=== PATIENT | male | born 1930 | race Caucasian/White ===

== ENCOUNTER 2017-11-23 14:58 | Inpatient (IN) | payer MEDICARE ==
[~2017-11-23] VITALS: Ht 175.2 cm; Wt 104.3 kg
--- NOTE | ~2017-11-23 | PR ---
[place], [place] PROGRESS NOTE NAME: ANGELASHANIQUA UNIT #: [id number] ROOM: 315 DOCTOR: SHANIQUA MANCIA MD BIRTHDATE: [birth year] DOS: 11/28/2017 CHIEF COMPLAINT: "Yeah, it is frustrating not being able to eat." SUMMARY OF THE VISIT: The patient was interviewed in the dining area where he was sitting waiting for his breakfast. He reports that he had not yet been served. He is frustrated that his diet has been changed because of some swallowing issues. We discussed at length his options as far as returning back to a long-term care facility versus returning home. He is still hopeful that he can return home. A discussion, however, with the treatment team indicates that his family is very much wanting him to return to a long-term care facility to build up his strength, so that if and when he does return home, it will be a successful transition. The patient does seem to be improving. His mood does seem to be more bright and pleasant. He has not verbalized any paranoia or delusions. MENTAL STATUS: He is alert and oriented to person, place and time. Mood does seem to be euthymic. Affect appropriate. There is no tor, hypomania or psychosis. Memory has mild gaps, but overall is pretty intact. PLAN: I will maintain his current psychotropic regimen. I will check a Neurontin level in the morning to ensure that it is therapeutic. If there is room to adjust, I will do so given the fact that one of his major issues now is chronic pain. We will engage in individual and man milieu activity, returning to the least restrictive environment when psychiatrically stable. SHANIQUA MANCIA MD CM:PNTRANS 0911 [id number] SHANIQUA MANCIA MD 11/28/17 1005 interface
--- NOTE | ~2017-11-23 | DS ---
[place], [place] DISCHARGE SUMMARY NAME: ANGELASHANIQUA UNIT #: [id number] ROOM: 315 DOCTOR: SHANIQUA MANCIA MD BIRTHDATE: [birth year] DOS: 12/02/2017 ADDENDUM CHIEF COMPLAINT: "I am ready to go doc, thank you so much." SUMMARY OF HOSPITAL COURSE: The patient was interviewed as he was sitting down to eat breakfast. He engaged readily in conversation, reporting that he feels well. He is very happy to be going to one of the [facility] because his daughter works there. He continues to express displeasure with his stay at [facility]. He reports that he is sleeping well, eating well. He still does complain of considerable pain, which has been an ongoing issue for him and needs to be addressed ongoingly as an outpatient. He, however, convincingly denies suicidal thoughts, homicidal thoughts or any self-injurious thoughts and denies any auditory or visual hallucinations or any type of symptomatology. He is tolerating the current medication regimen well. MENTAL STATUS AT DISCHARGE: He is alert and oriented. Mood does seem to be euthymic. Affect appropriate. There are no suicidal or homicidal or self-injurious thoughts. There is no tor, psychosis or any type of symptomatology. Memory does have some gaps, but overall he is intact. DIAGNOSES: Major depression, recurrent. DISPOSITION: To go to one of the [facility] in [place] where I will follow him upon his return. His scripts have been printed and sent with him. SHANIQUA MANCIA MD CM:DISCHARG 0938 SHANIQUA MANCIA MD 12/02/17 1927 interface
--- NOTE | ~2017-11-23 | PR ---
[place], [place] PROGRESS NOTE [id number] UNIT #: [id number] ROOM: 315 DOCTOR: JAE VILLEGAS MD BIRTHDATE: [birth year] DOS: 11/29/2017 SUBJECTIVE: The patient seen and spoke with the staff. Per staff, the patient is doing better today, only had one emesis. Eating well. Medication compliant. No behavioral problems or issues. The patient was on his bed. He reports doing well. He said that he is happy that he is not throwing up anymore. He denied any side effect from the medication. He reports good sleep. MENTAL STATUS EXAMINATION: The patient was pleasant and cooperative. He was alert, oriented to month and year. He described his mood as "good." Affect, mood congruent. Thought process goal directed with some confabulation. He denied auditory or visual hallucination. No delusion or paranoia noted. He denied suicidal ideation, intent or plan. He also denied homicidal ideation, intent or plan. ASSESSMENT: Brief psychotic disorder. PLAN: 1. Continue current medication and care. 2. Increase activity and groups 3. Encourage psychoeducation and coping skills. JAE VILLEGAS MD CM:PNTRANS [id number] JAE VILLEGAS MD 11/30/17 0042 interface
--- NOTE | ~2017-11-23 | PR ---
[place], [place] PROGRESS NOTE NAME: SHANIQUA MILLER [facility] #: [id number] UNIT #: [id number] ROOM: 315 DOCTOR: JAE VILLEGAS MD BIRTHDATE: [birth year] DOS: 11/30/2017 SUBJECTIVE: The patient seen and I spoke with the staff. Per staff, the patient is doing well. No visual problems or issues. Medication compliant. Good sleep and appetite. The patient was in his bed. He was able to recall me. He reports doing good. Denied depressed mood or hopelessness. Denied any other neurological signs and symptoms of depression. He reported good sleep and appetite. He said that he had some headache this morning and will be asking for the p.r.n. medication from the nursing staff. MENTAL STATUS EXAMINATION: The patient was pleasant, cooperative. Described his mood as "good." Affect, mood congruent. Thought process goal directed. No flight of ideas, loosening of association. He denied auditory or visual hallucination. No delusion or paranoia noted. He denied suicidal ideation, intent or plan. He also denied homicidal ideation, intent or plan. ASSESSMENT: Brief psychotic disorder. PLAN: 1. Continue current medication and care. 2. Continue redirection. 3. Encourage activities and groups. 4. Final medication management and discharge planning by the regular team. JAE VILLEGAS MD CM:PNTRANS 38 JAE VILLEGAS MD 11/30/172236 interface
--- NOTE | ~2017-11-23 | PR ---
[place], [place] PROGRESS NOTE NAME: ANGELASHANIQUA UNIT #: [id number] ROOM: 315 DOCTOR: SHANIQUA MANCIA MD BIRTHDATE: [birth year] DOS: 11/27/2017 CHIEF COMPLAINT: "I am doing okay, Thanks for asking." SUMMARY OF THE VISIT: The patient was interviewed in the dining area where he was sitting eating breakfast. He stopped and engaged in conversation readily. I discussed with him the possibility of returning back to a long-term care facility versus home. We discussed the possibility that he might have to go into a long-term care facility because of his multiple physical ailments. He did request that we consider finding him another facility other than [facility]. His preference continues to be returning home with in-home services. He was bright and pleasant. He reported a good sleep and he was eating well. There is no paranoia. There was no agitation. There was no mood lability. He seems to be tolerating the current medication regimen well. MENTAL STATUS: He is alert and oriented. Mood does seem to be trending strongly towards euthymia. Affect is much more appropriate. There was no tor, hypomania or psychosis. Memory for the most part is intact. PLAN: I will maintain his current psychotropic regimen. We will have manager social media explore possible placement options including the possibility of returning home. We will discharge then when psychiatrically stable. SHANIQUA MANCIA MD CM:PNTRANS [id number] SHANIQUA MANCIA MD 11/27/17 0932 interface
--- NOTE | ~2017-11-23 | PR ---
[place], [place] PROGRESS NOTE NAME: ANEGLASHANIQUA UNIT #: [id number] ROOM: 315 DOCTOR: SHANIQUA MANCIA MD BIRTHDATE: [birth year] DOS: 11/26/2017 CHIEF COMPLAINT: "I really don't want to go back to [place], can I go home?" SUMMARY OF THE VISIT: The patient was interviewed in the dining area. He was sitting there talking to peers with his oxygen on. He stopped and welcomed me and engaged readily in conversation. He does seem to be brighter and more pleasant and reports that he is sleeping much better and is eating better. He did voice a wish to be able to return home and that he does not want to go back to [facility]. I did discuss with him that this is really up to the hospitalist and his medical doctors because of the severity of his medical conditions and being oxygen dependent. I will have the hospitalist notified to see if this is something that is a reasonable thing to work towards and be able to put visiting nurses in place or if his needs are such that he must go to a long-term care facility. MENTAL STATUS: He is alert and oriented. Mood does seem to be trending towards euthymia. Affect is more appropriate. There are no symptoms of tor or hypomania. There are no overt auditory or visual hallucinations. Memory for the most part is intact. PLAN: I will discontinue his Risperdal completely now as he does not seem to have psychosis. There does seem to be just the presence of the depression, which is lessening. I will give him Benadryl 25 mg IM now as the nurses report he has complained somewhat of some swallowing issues. Between discontinuing the Risperdal and giving him the Benadryl to counteract, we should see a relief in this. We will continue to engage in individual and man milieu activity with the plan to return to the least restrictive environment when psychiatrically stable. SHANIQUA MANCIA MD CM:PNTRANS [id number] SHANIQUA MANCIA MD 11/26/17 1315 interface
--- NOTE | ~2017-11-23 | WRIGHTHP ---
[place], [place] PATIENT HISTORY AND PHYSICAL EXAM NAME: SHANIQUA MILLER UNIT #: [id number] ROOM: 312 DOCTOR: BLANCHE ARGUETASHANIQUA BIRTHDATE: [birth year] DOS: 11/24/2017 CHIEF COMPLAINT: "I am here because I was afraid to go to bed. I am scared at that place." HISTORY OF PRESENT ILLNESS: This is an 87-year-old white male who is a resident of the [facility]. The patient apparently has become increasingly depressed, despondent and paranoid. The patient is afraid to go to bed. Per his report, he is afraid that something will happen to him overnight. He has also, however, been making statements that he will hang himself and he will be before the Super Bowl. He is fearful that people are poisoning him and placing toxins in either his food or his medication. He has been fearful to take these. He has not been cooperating with ADLs and has been very resistive to care. He is admitted now to rule out organic factors, to stabilize on medication, returning to the least restrictive environment when psychiatrically stable. PAST MEDICAL HISTORY: Remarkable for hypertension, chronic pain, coronary artery disease. MENTAL STATUS: The patient is alert and oriented to person, place and very approximate to time. Mood does seem to be rather down and depressed. Affect is flat, blunted with a constricted range. He endorses some paranoia and states that he is fearful for his life. There are no auditory or visual hallucinations. No delusions other than the paranoia. Short-term memory has mild gaps, otherwise he is intact. DIAGNOSIS: Major depression, recurrent with psychotic features. PLAN: I have maintained him on Risperdal, but adjusted the dose upward to 0.5 b.i.d. I have added Remeron 15 mg at bedtime as an antidepressant. His vitamin D level is very low normal as is his vitamin B12. I will start vitamin B12 injection of 1000 mcg IM today and vitamin D 50,000 international units every Friday engage in individual and man milieu activity, returning to the least restrictive environment when psychiatrically stable. [place], [place] PATIENT HISTORY AND PHYSICAL EXAM NAME: SHANIQUA MILLER UNIT #: [id number] ROOM: [facility] DOCTOR: SHANIQUA MANCIA MD BIRTHDATE: [birth year] SHANIQUA MANCIA MD CM:HISPHYS:PATIENT HISTORY AND PHYSICAL EXAMINATION 3 9 SHANIQUA MANCIA MD 11/24/17 0929 interface
--- NOTE | ~2017-11-23 | DS ---
[place], [place] DISCHARGE SUMMARY [id number] UNIT #: [id number] ROOM: 315 DOCTOR: SHANIQUA MANCIA MD BIRTHDATE: [birth year] DOS: 12/01/2017 CHIEF COMPLAINT: "I am here because I was afraid to go to bed. I am scared at that place that something will happen." HISTORY OF PRESENT ILLNESS: This is an 87-year-old white male who is a resident of the [facility]. The patient has become increasingly depressed and despondent and paranoid. He states that he has been afraid to go to bed. Per his report, he is afraid that something will happen to him overnight. He also has been making statements that he was going to hang himself and that he would be before Super Bowl. He is fearful that people are poisoning him and placing toxins in either his food or his medication. He has not been compliant with meds because of this, he has not been cooperating with ADLs and has been resistive to all aspects of his care. He is admitted now to rule out organic factors and to stabilize on medication, returning to the least restrictive environment when psychiatrically stable. PAST MEDICAL HISTORY: Remarkable for hypertension, chronic pain, coronary artery disease and a plethora of surgeries. SUMMARY OF HOSPITAL COURSE: The patient was admitted to the unit where he was started on Risperdal and the dose initially was increased to 0.5 mg twice a day, Remeron 15 mg at bedtime was added as an antidepressant. Additionally, screening exam showed him to have a low vitamin D and a low vitamin B12 level and he was given appropriate treatment for these. After all well it became very evident that he truly was not paranoid, but that some of his fears were based in fact that he did not like the intermediate and he did not like people wandering into his bedroom. Because of this, he was fearful that these confused people would actually hurt him. The Risperdal was gradually tapered and discontinued without any ill effect. He maintained on the Remeron 15 mg at bedtime and did improve, sleep and appetite normalized. He was much more conversant and pleasant. He did verbalize a wish that he had to go to a intermediate that he would not return back to [facility] and we did assist him in finding an alternative placement. He had improved sufficiently to return to that placement. MENTAL STATUS AT DISCHARGE: The patient is alert and oriented. Mood was generally euthymic. Affect appropriate. No tor or hypomania. No gross psychosis. There are no suicidal thoughts, homicidal thoughts or any self-injurious thoughts. Memory had mild gaps, but for the most part, he was intact. FINAL DIAGNOSES: Major depression, recurrent. PLAN: His prescription for Remeron was printed and will be sent with him. He will be discharged to the least restrictive environment. ADDENDUM ADDENDUM [place], [place] DISCHARGE SUMMARY NAME: SHANIQUA MILLER UNIT #: [id number] ROOM: 315 DOCTOR: SHANIQUA MANCIA MD BIRTHDATE: [birth year] CHIEF COMPLAINT: "I am ready to go doc, thank you so much." SUMMARY OF HOSPITAL COURSE: The patient was interviewed as he was sitting down to eat breakfast. He engaged readily in conversation, reporting that he feels well. He is very happy to be going to one of the [facility] because his daughter works there. He continues to express displeasure with his stay at [facility]. He reports that he is sleeping well, eating well. He still does complain of considerable pain, which has been an ongoing issue for him and needs to be addressed ongoingly as an outpatient. He, however, convincingly denies suicidal thoughts, homicidal thoughts or any self-injurious thoughts and denies any auditory or visual hallucinations or any type of symptomatology. He is tolerating the current medication regimen well. MENTAL STATUS AT DISCHARGE: He is alert and oriented. Mood does seem to be euthymic. Affect appropriate. There are no suicidal or homicidal or self-injurious thoughts. There is no tor, psychosis or any type of symptomatology. Memory does have some gaps, but overall he is intact. DIAGNOSES: Major depression, recurrent. DISPOSITION: To go to one of the [facility] in [place] where I will follow him upon his return. His scripts have been printed and sent with him. SHANIQUA MANCIA MD CM:DISCHARG [id number] SHANIQUA MANCIA MD 12/04/17 1011 interface
--- NOTE | ~2017-11-23 | PROC NOTE ---
[place], [place] PROCEDURE NOTE NAME: SHANIQUA MILLER [facility] #: [id number] UNIT #: [id number] ROOM: 315 DOCTOR: MARIAN MURRAY BIRTHDATE: [birth year] DOS: 11/27/2017 MODIFIED BARIUM SWALLOW. LOCATION: [address] [place] [address], room 315, bed 1. ORDERING PHYSICIAN: Dr. Mancia. RADIOLOGIST: Dr. Do. BACKGROUND INFORMATION: The patient, an 87-year-old male was seen for a modified barium swallow. This test was ordered to determine most appropriate diet and view the anatomy and physiology of the swallowing mechanism. This patient was admitted to the [facility] with diagnoses of brief psychotic disorder, depression, DM, hypertension, multiple falls and GERD. Reports indicate an extended swallow time, coughing with meals, reporting a feeling that food is sticking and coughing up food after meals. The patient was seen for a bedside swallowing evaluation this morning. At that time, he was completing his meal and was observed to have emesis following the meal. He currently receives a full liquid diet. For today's assessment, the patient was alert, cooperative and able to follow all commands. Oral peripheral examination revealed presence of upper and lower dentures, which patient reported were adequately fitting. Lingual, labial, and buccal skills were within normal limits in terms of strength, range of motion, and coordination. The patient was able to volitionally cough and swallow. He was wearing oxygen by nasal cannula during the assessment. METHODS AND MATERIALS USED FOR THE EXAM: The patient was positioned in the lateral plane and the examination was viewed under fluoroscopy. The patient was presented with a variety of consistencies to assess swallowing skills including applesauce mixed with barium presented in half teaspoon amounts, barium-coated cookie and sandwich given in bite size pieces and thin and nectar thick barium taken by cup in single sip size amounts. ORAL PHASE: The patient achieved adequate labial seal around cup and spoon with no anterior loss. Bolus formation was adequate with all consistencies. Mastication was within functional limits. Oral transit time of puree and solids was mildly increased. Tongue to palate contact was within normal limits. Tongue to posterior pharyngeal wall contact was within normal limits. Velar functioning was within normal limits with no nasal regurgitation. PHARYNGEAL PHASE: The pharyngeal swallow occurred within a timely manner. The patient exhibited reduced laryngeal elevation and epiglottic function when swallowing thin liquid barium with aspiration occurring during the swallow. Weak coughing was elicited at this time. No penetration or aspiration occurred with any other consistency. There was no pooling in the pharynx post-swallow with any consistency. ESOPHAGEAL PHASE: This phase of the swallow was not formally assessed during this exam. [place], [place] PROCEDURE NOTE NAME: SHANIQUA MILLER UNIT #: [id number] ROOM: 315 DOCTOR: MARIAN MURRAY BIRTHDATE: [birth year] IMPRESSIONS AND RECOMMENDATIONS: Based upon assessment results, this 87-year-old patient presents with a mild oropharyngeal dysphagia characterized by slow oral transit and aspiration during the swallow with thin liquids. Recommend a regular diet and nectar thick liquids. Recommend use of universal safe swallow precautions such as upright positioning with meals, small bites and sips and slow consumption. Follow up therapy is recommended focusing on pharyngeal exercises, education and use of safe swallow precautions. The patient would benefit from a followup modified barium swallow study in 3-4 weeks to assess progress and need to continue with thick liquids. Results and recommendations were shared with the patient and his nurse and they verbalized understanding. Thank you very much for this referral. Should you have any questions regarding this patient, please contact the speech pathologist at [phone]. MARIAN MURRAY SHANIQUA MANCIA MD CM:PROCNOTE:PROCEDURE NOTE [id number] MARIAN MURRAY
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
[2017-11-23] MEDS ORDERED: ALDACTONE25 M1 PO (15:40)
[2017-11-23] MEDS ORDERED: LIPITOR10 MG PO (15:42)
[2017-11-23] MEDS ORDERED: ASPIRIN ADULT L81 M2 PO (15:42)
[2017-11-23] MEDS ORDERED: SEPTDS PO (15:44)
[2017-11-23] MEDS ORDERED: COLCHICINE0.6 M2 PO (15:53)
[2017-11-23] MEDS ORDERED: HEARTBURN RELIE20 MG PO (15:55)
[2017-11-23] MEDS ORDERED: Duragesic 75 M75 MCG TD (16:01)
[2017-11-23] MEDS ORDERED: GABAPENTIN TAB600 MG PO ×2 (16:03→16:04)
[2017-11-23] MEDS ORDERED: POTASSIUM CHLO20 ME3 PO (16:07)
[2017-11-23] MEDS ORDERED: LASIX40 MG PO (16:08)
[2017-11-23] MEDS ORDERED: MELATONIN5 M1 PO ×2 (16:10→16:52)
[2017-11-23] MEDS ORDERED: NORVASC5 MG PO (16:11)
[2017-11-23] MEDS ORDERED: PROSIGHT TABLE1 EACH PO (16:13)
[2017-11-23] MEDS ORDERED: ROPINIROLE HYDRO1 MG PO (16:14)
[2017-11-23] MEDS ORDERED: ZOLOFT50 MG PO (16:15)
[2017-11-23] MEDS ORDERED: TERAZOSIN HCL5 M1 PO (16:16)
[2017-11-23] MEDS ORDERED: CLONIDINE HCL0.2 MG PO (16:17)
[2017-11-23] MEDS ORDERED: METOPROLOL TART75 MG PO (16:20)
[2017-11-23] MEDS ORDERED: RISPERDAL0.25 MG PO (16:23)
[2017-11-23] MEDS ORDERED: DULCOLAX10 M1 R (16:25)
[2017-11-23] MEDS ORDERED: FLEET ENEMA 13133 ML R (16:32)
[2017-11-23] MEDS ORDERED: MILK OF MA400 MG/51 PO (16:54)
[2017-11-23] MEDS ORDERED: OXYCODONE-ACET500 ML PO (16:56)
[2017-11-23] MEDS ORDERED: TRAZODONE50 MG PO (17:02)
[2017-11-23] MEDS ORDERED: SALINE NASAL M126 ML NAS (17:02)
[2017-11-23] MEDS ORDERED: APAP325 MG PO (17:04)
[2017-11-23] MEDS ORDERED: TYLENOL325 M1 PO (17:05)
[2017-11-23] MEDS ORDERED: VOLTAREN100 GM T (17:06)
[2017-11-23] MEDS ORDERED: KENALOG 0.1%80 GM T (17:08)
[2017-11-23 18:42] VITALS: BP 190/98
[2017-11-23 20:00] VITALS: BP 196/102
[2017-11-24 00:04] LABS: BASO % 0.4 % (0.0-1.0); EOS # 0.3 10*3/uL (0.0-0.4); EOS % 4.6 % (1.0-4.0); HEMATOCRIT 38.2 % (42.0-52.0); HEMOGLOBIN 12.4 g/dl (14.0-18.0); LYMPH # 1.3 10*3/uL (1.3-4.4); LYMPH % 18.3 % (27.0-41.0); MEAN CELL VOLUME 97.9 fl (80.0-94.0); MEAN CORPUSCULAR HGB 31.8 pg (27.0-31.0); MEAN CORPUSCULAR HGB CONC 32.5 g/dl (33.0-37.0); MEAN PLATELET VOLUME 10.3 fl (9.6-12.3); MONO # 0.7 10*3/uL (0.1-1.0); MONO % 9.1 % (3.0-9.0); NEUT # 4.8 10*3/uL (2.3-7.9); NEUT % 66.6 % (47.0-73.0); PLATELET COUNT AUTOMATED 103 10*3/uL (130-400); RED CELL DISTRI WIDTH 14.4 % (0-14.5); WHITE BLOOD COUNT 7.2 10*3/uL (4.8-10.8)
[2017-11-24 00:16] LABS: ALBUMIN 3.6 gm/dl (3.1-4.5); CREATININE 1.97 mg/dL (0.70-1.30); POTASSIUM 3.8 mmol/L (3.5-5.1); TOTAL PROTEIN 7.7 gm/dL (6.4-8.2)
[2017-11-24 00:25] LABS: THYROID STIM HORMONE (HS) 1.61 uIU/ml (0.358-4.75)
[2017-11-24 01:11] LABS: VITAMIN D, 25-HYDROXY 30.7 ng/mL (30-100)
[2017-11-24 02:47] VITALS: BP 156/78
[2017-11-24 08:04] LABS: CHOLESTEROL 102 mg/dL (<200); HDL CHOLESTEROL 34 mg/dl (40-60); LDL CHOLESTEROL 50 mg/dL (9-159); TRIGLYCERIDES 89 mg/dl (<150); VLDL CHOLESTEROL 18 mg/dL (6-40)
[2017-11-24 09:08] VITALS: BP 166/98
[2017-11-24 10:00] VITALS: BP 164/82
[2017-11-24 14:00] VITALS: BP 155/88
[2017-11-25 07:38] LABS: BASO # 0.1 10*3/uL (0.0-0.1); BASO % 0.8 % (0.0-1.0); EOS # 0.4 10*3/uL (0.0-0.4); EOS % 6.3 % (1.0-4.0); HEMATOCRIT 36.7 % (42.0-52.0); HEMOGLOBIN 11.8 g/dl (14.0-18.0); LYMPH % 31.5 % (27.0-41.0); MEAN CELL VOLUME 99.5 fl (80.0-94.0); MEAN CORPUSCULAR HGB CONC 32.2 g/dl (33.0-37.0); MEAN PLATELET VOLUME 10.4 fl (9.6-12.3); MONO # 0.8 10*3/uL (0.1-1.0); MONO % 12.1 % (3.0-9.0); NEUT # 3.2 10*3/uL (2.3-7.9); PLATELET COUNT AUTOMATED 98 10*3/uL (130-400); RED BLOOD COUNT 3.69 10*6/uL (4.50-5.90); RED CELL DISTRI WIDTH 14.5 % (0-14.5); WHITE BLOOD COUNT 6.5 10*3/uL (4.8-10.8)
[2017-11-25 07:57] VITALS: BP 156/74
[2017-11-25 07:59] LABS: CREATININE 1.96 mg/dL (0.70-1.30)
[2017-11-25 20:52] VITALS: BP 137/75
[2017-11-26 08:02] VITALS: BP 137/86
[2017-11-26 20:00] VITALS: BP 157/60
[2017-11-27 07:49] VITALS: BP 146/74
[2017-11-27 20:00] VITALS: BP 150/85
[2017-11-28 07:55] VITALS: BP 140/71
[2017-11-28 09:48] LABS: BASO % 0.4 % (0.0-1.0); EOS # 0.3 10*3/uL (0.0-0.4); EOS % 3.1 % (1.0-4.0); HEMATOCRIT 35.7 % (42.0-52.0); HEMOGLOBIN 11.8 g/dl (14.0-18.0); LYMPH # 1.5 10*3/uL (1.3-4.4); MEAN CELL VOLUME 98.6 fl (80.0-94.0); MEAN CORPUSCULAR HGB 32.6 pg (27.0-31.0); MEAN CORPUSCULAR HGB CONC 33.1 g/dl (33.0-37.0); MEAN PLATELET VOLUME 10.8 fl (9.6-12.3); MONO # 0.6 10*3/uL (0.1-1.0); MONO % 5.8 % (3.0-9.0); NEUT # 7.1 10*3/uL (2.3-7.9); NEUT % 74.2 % (47.0-73.0); PLATELET COUNT AUTOMATED 108 10*3/uL (130-400); RED BLOOD COUNT 3.62 10*6/uL (4.50-5.90); RED CELL DISTRI WIDTH 14.1 % (0-14.5); WHITE BLOOD COUNT 9.6 10*3/uL (4.8-10.8)
[2017-11-28 10:20] LABS: ALBUMIN 3.1 gm/dl (3.1-4.5); CREATININE 2.18 mg/dL (0.70-1.30); POTASSIUM 3.9 mmol/L (3.5-5.1); TOTAL PROTEIN 7.5 gm/dL (6.4-8.2)
[2017-11-28 20:00] VITALS: BP 118/61
[2017-11-29 06:52] LABS: BASO % 0.5 % (0.0-1.0); EOS # 0.5 10*3/uL (0.0-0.4); EOS % 6.9 % (1.0-4.0); HEMATOCRIT 33.6 % (42.0-52.0); LYMPH # 1.6 10*3/uL (1.3-4.4); LYMPH % 20.6 % (27.0-41.0); MEAN CELL VOLUME 99.4 fl (80.0-94.0); MEAN CORPUSCULAR HGB 32.5 pg (27.0-31.0); MEAN CORPUSCULAR HGB CONC 32.7 g/dl (33.0-37.0); MONO # 0.8 10*3/uL (0.1-1.0); MONO % 10.7 % (3.0-9.0); NEUT # 4.6 10*3/uL (2.3-7.9); NEUT % 60.5 % (47.0-73.0); PLATELET COUNT AUTOMATED 106 10*3/uL (130-400); RED BLOOD COUNT 3.38 10*6/uL (4.50-5.90); RED CELL DISTRI WIDTH 14.2 % (0-14.5); WHITE BLOOD COUNT 7.7 10*3/uL (4.8-10.8)
[2017-11-29 07:19] LABS: CREATININE 2.62 mg/dL (0.70-1.30); POTASSIUM 4.3 mmol/L (3.5-5.1); TOTAL PROTEIN 7.2 gm/dL (6.4-8.2)
[2017-11-29 07:43] VITALS: BP 142/88
[2017-11-29 20:00] VITALS: BP 141/64
[2017-11-30 06:03] LABS: BASO # 0.1 10*3/uL (0.0-0.1); BASO % 0.7 % (0.0-1.0); EOS # 0.5 10*3/uL (0.0-0.4); EOS % 7.6 % (1.0-4.0); HEMATOCRIT 33.8 % (42.0-52.0); LYMPH # 1.5 10*3/uL (1.3-4.4); LYMPH % 21.3 % (27.0-41.0); MEAN CELL VOLUME 98.5 fl (80.0-94.0); MEAN CORPUSCULAR HGB 32.1 pg (27.0-31.0); MEAN CORPUSCULAR HGB CONC 32.5 g/dl (33.0-37.0); MEAN PLATELET VOLUME 9.9 fl (9.6-12.3); MONO # 0.8 10*3/uL (0.1-1.0); MONO % 10.7 % (3.0-9.0); NEUT # 4.1 10*3/uL (2.3-7.9); NEUT % 58.6 % (47.0-73.0); PLATELET COUNT AUTOMATED 111 10*3/uL (130-400); RED BLOOD COUNT 3.43 10*6/uL (4.50-5.90); RED CELL DISTRI WIDTH 13.8 % (0-14.5)
[2017-11-30 06:24] LABS: ALBUMIN 2.9 gm/dl (3.1-4.5); CREATININE 2.19 mg/dL (0.70-1.30); PHOSPHOROUS 3.4 mg/dL (2.5-4.9); POTASSIUM 4.3 mmol/L (3.5-5.1); TOTAL PROTEIN 7.1 gm/dL (6.4-8.2)
[2017-11-30 07:53] VITALS: BP 138/64
[2017-11-30 20:00] VITALS: BP 136/62
[2017-12-01 07:16] LABS: BASO # 0.1 10*3/uL (0.0-0.1); BASO % 0.7 % (0.0-1.0); EOS # 0.5 10*3/uL (0.0-0.4); EOS % 6.1 % (1.0-4.0); HEMATOCRIT 35.6 % (42.0-52.0); HEMOGLOBIN 11.4 g/dl (14.0-18.0); LYMPH # 2.3 10*3/uL (1.3-4.4); LYMPH % 27.4 % (27.0-41.0); MEAN CELL VOLUME 98.3 fl (80.0-94.0); MEAN CORPUSCULAR HGB 31.5 pg (27.0-31.0); MEAN PLATELET VOLUME 9.5 fl (9.6-12.3); MONO % 11.6 % (3.0-9.0); NEUT # 4.3 10*3/uL (2.3-7.9); NEUT % 51.9 % (47.0-73.0); PLATELET COUNT AUTOMATED 134 10*3/uL (130-400); RED BLOOD COUNT 3.62 10*6/uL (4.50-5.90); RED CELL DISTRI WIDTH 13.6 % (0-14.5); WHITE BLOOD COUNT 8.2 10*3/uL (4.8-10.8)
[2017-12-01 07:47] LABS: ALBUMIN 3.1 gm/dl (3.1-4.5); POTASSIUM 4.7 mmol/L (3.5-5.1)
[2017-12-01 07:50] LABS: CREATININE 1.8 mg/dL (0.70-1.30); TOTAL PROTEIN 7.5 gm/dL (6.4-8.2)
[2017-12-01 07:53] VITALS: BP 150/74
[2017-12-01] MEDS ORDERED: MIRTAZAPINE15 M2 PO (09:00)
[2017-12-01] MEDS ORDERED: OXYCODONE HCL5 MG PO (12:20)
[2017-12-01] MEDS ORDERED: Duragesic 75 M75 MCG TD (12:20)
[2017-12-01] MEDS ORDERED: Percocet 325 MG1 TAB PO (12:20)
[2017-12-01 20:00] VITALS: BP 148/80
[2017-12-02 07:54] VITALS: BP 190/82
[2017-12-02 08:21] LABS: ALBUMIN 3.1 gm/dl (3.1-4.5); CREATININE 1.75 mg/dL (0.70-1.30); POTASSIUM 4.8 mmol/L (3.5-5.1)
[2017-12-02 09:03] VITALS: BP 142/88
[2017-12-03 18:03] LABS: NEURONTIN (GABAPENTIN) 46.5 ug/mL (4.0-16.0)
== END 2017-12-02 17:39 | disposition other institution (70) | DRG 885 ==
LOC: 3N 14:58
PROVIDERS: Emergency Medicine; Hospitalist; Internal Medicine; Psychiatry & Neurology Psychiatry; Registered Nurse
PROC: BD11YZZ Fluoroscopy of Esophagus using Other Contrast (ICD-10-PCS; principal; 2017-11-27)
DX: F33.3 Major depressive disorder, recurrent, severe with psychotic symptoms (principal); N17.9 Acute kidney failure, unspecified; L03.115 Cellulitis of right lower limb; D69.6 Thrombocytopenia, unspecified; E11.9 Type 2 diabetes mellitus without complications; R13.12 Dysphagia, oropharyngeal phase; F23 Brief psychotic disorder; D64.9 Anemia, unspecified; G89.29 Other chronic pain; I10 Essential (primary) hypertension; I25.10 Atherosclerotic heart disease of native coronary artery without angina pectoris; T56.0X1S Toxic effect of lead and its compounds, accidental (unintentional), sequela; M10.10 Lead-induced gout, unspecified site; G25.81 Restless legs syndrome; R29.6 Repeated falls; G47.00 Insomnia, unspecified; M54.9 Dorsalgia, unspecified; K21.9 Gastro-esophageal reflux disease without esophagitis; K57.90 Diverticulosis of intestine, part unspecified, without perforation or abscess without bleeding; K44.9 Diaphragmatic hernia without obstruction or gangrene; Z96.641 Presence of right artificial hip joint; Z96.651 Presence of right artificial knee joint; Z87.891 Personal history of nicotine dependence; Z82.3 Family history of stroke; Z79.82 Long term (current) use of aspirin; Z79.899 Other long term (current) drug therapy